=== PATIENT | female | born 1960 | race Caucasian/White ===

== ENCOUNTER → 2017-07-20 | Outpatient (CLI) | payer BC ==
[~2017-07-20] MED LIST: ACTOS 15MG TAB15 MG PO; ACTOS30 MG PO; ASPIR-LOW81 MG PO; ASPIRIN 81M81 MG/TA2 PO; ASPIRIN E.C. 8181 MG PO; BELLADONNA/OPIU1 SU2 RC; BENZAPRIL; BYETTA SC; BYSTOLIC PO; BYSTOLIC10 MG PO; BYSTOLIC20 MG PO; DIABETA 5MG5 MG/TAB PO; FARXIGA10 PO; FLEXERIL 1010 MG/TAB PO; FLEXERIL10 MG PO; GLUCOPHAGE PO; GLUCOPHAGE500 MG/TAB PO; GLUMETZA500 MG PO; HCTZ12.5TAB PO; JANUVIA 100MG100 MG PO; LIPITOR 40MG TA40 MG PO; LIPITOR40 MG PO; LORTAB 5/500 501 TAB PO; LOTENSIN10 MG PO; LOTENSIN40 MG PO; LOVAZA1 GM PO; NAPROSYN500 MG PO; NITROQUICK0.4 MG SL; NITROSTAT0.4 MG/TAB SL; NO HOME MEDICATIONS; NORVASC 10MG10 MG PO; NORVASC 5MG5 MG/TAB PO; ONE DAILY1 TA1 PO; OZEMPIC1 MG/0.75 SQ; PERCOCET 325 MG1 TA2 PO; PHENERGAN 25 TA25 MG PO; PROAIR HFA0.09 MG/AC IH; PROTONIX 40MG T40 MG PO; SEPTRA DS 8001 TAB PO; TENORMIN 5050 MG/TAB PO; TENORMIN100 MG PO; TUSS PO; VICODIN 5/5001 UDTAB PO; VITAMIN C1 TAB PO; XIGDUO5/1000 PO; ZITHROMAX 250M250 MG PO; ZITHROMAX250 MG PO; [UNRECOGNIZED DRUG - OTHER]
== END ==
LOC: COL.CARD 10:40
DX: R00.2 Palpitations (principal)

== ENCOUNTER → 2017-08-27 | Outpatient (CLI) | payer BC ==
[~2017-08-27] MED LIST changes: -ASPIRIN 81M81 MG/TA2 PO; -BYSTOLIC10 MG PO; -HCTZ12.5TAB PO; -OZEMPIC1 MG/0.75 SQ; -XIGDUO5/1000 PO
== END ==
LOC: MC.RAD 13:27
DX: Z12.31 Encounter for screening mammogram for malignant neoplasm of breast (principal)

== ENCOUNTER → 2017-10-26 | Outpatient (CLI) | payer BC | LOC: COL.VAS 09:43 | DX: I70.0 Atherosclerosis of aorta (principal) ==

== ENCOUNTER 2018-03-05 13:38 | Emergency (ER) | payer OTHER, BC ==
[~2018-03-05] VITALS: Wt 96.4 kg
[2018-03-05] MEDS ORDERED: FLEXERIL 1010 MG/TAB PO (14:43)
[2018-03-05 14:55] VITALS: BP 148/73; PULSE 77; TEMP 98.1
== END 2018-03-05 14:55 | disposition home or self-care (01) ==
LOC: COL.ER 13:38
DX: S16.1XXA Strain of muscle, fascia and tendon at neck level, initial encounter (principal); I10 Essential (primary) hypertension; E11.9 Type 2 diabetes mellitus without complications; Z79.84 Long term (current) use of oral hypoglycemic drugs; V43.52XA Car driver injured in collision with other type car in traffic accident, initial encounter

== ENCOUNTER 2019-06-06 13:06 | Outpatient (CLI) | payer BC ==
[~2019-06-06] VITALS: Ht 165.1 cm; Wt 93.2 kg
[2019-06-06] MEDS ORDERED: XIGDUO5/1000 PO (13:47)
[2019-06-06] MEDS ORDERED: HCTZ12.5TAB PO (13:47)
[2019-06-06] MEDS ORDERED: JANUVIA 100MG100 MG PO (13:48)
[2019-06-06] MEDS ORDERED: ASPIRIN 81M81 MG/TA2 PO (13:49)
[2019-06-06] MEDS ORDERED: BYSTOLIC10 MG PO (13:49)
[2019-06-06] MEDS ORDERED: OZEMPIC1 MG/0.75 SQ (13:49)
[2019-06-06 14:15] VITALS: BP 162/52; PULSE 72; TEMP 98.1
== END 2019-06-06 15:20 | disposition home or self-care (01) ==
LOC: EUO 13:06
DX: E87.6 Hypokalemia (principal)
CPT/HCPCS: J7030

== ENCOUNTER 2019-06-11 18:28 | Emergency (ER) | payer BC ==
[~2019-06-11] VITALS: Ht 165.1 cm; Wt 92.3 kg
[~2019-06-11 18:28] MED LIST changes: +ASPIRIN 81M81 MG/TA2 PO; +BYSTOLIC10 MG PO; +HCTZ12.5TAB PO; +OZEMPIC1 MG/0.75 SQ; +XIGDUO5/1000 PO
[2019-06-11 18:37] VITALS: BP 149/82; TEMP 98.3
[2019-06-11 18:59] LABS: BASO # 0.1 (0.0-0.2); BASO % 0.5 % (0.0-2.0); EOS # 0.2 (0.0-0.7); EOS % 1.6 % (0-4.0); GRAN # 9.9 (1.4-6.5); GRAN % 66.7 % (42.2-75.2); HEMATOCRIT 43.2 % (37.0-47.0); HEMOGLOBIN 13.8 g/dl (12.5-16.0); LYMPH # 3.6 (1.2-3.4); LYMPH % 23.9 % (20.0-51.0); MEAN CELL VOLUME 83 fl (80.0-100.0); MEAN CORPUSCULAR HEMOGLOBIN 27 pg (27.0-31.0); MEAN CORPUSCULAR HGB CONC 32 g/dl (33.0-37.0); MEAN PLATELET VOLUME 10.4 fl (7.4-10.4); MONO % 6.8 % (1.7-9.3); PLATELET COUNT 387 K/mm3 (130-400); RED BLOOD COUNT 5.18 M/mm3 (4.10-5.30); REDCELL DISTRIBUTION WIDTH-CV 16.2 % (11.5-14.5)
[2019-06-11 19:04] LABS: INR 0.8 (0.8-3.0); PROTHROMBIN TIME 8.8 SECONDS (9.7-12.8)
[2019-06-11 19:17] LABS: ALANINE AMINOTRANSFERASE 20 U/L (9-52); ALBUMIN 4.4 gm/dL (3.5-5.0); ALKALINE PHOSPHATASE 100 U/L (50-136); ANION GAP 15 mmol/L (7-16); AST,SGOT 28 U/L (15-37); BILIRUBIN,TOTAL 0.3 mg/dL (0.0-1.0); BLOOD UREA NITROGEN 15 mg/dL (7-17); CALCIUM 9.4 mg/dL (8.4-10.2); CARBON DIOXIDE 22 mmol/L (22-30); CHLORIDE 101 mmol/L (98-107); CREATININE, serum 0.81 (0.52-1.25); GLUCOSE 209 mg/dL (74-106); LIPASE 342 U/L (23-300); POTASSIUM 4.1 mmol/L (3.4-5.0); SODIUM 137 mmol/L (137-145); TOTAL PROTEIN 7.3 gm/dL (6.4-8.2)
[2019-06-11 19:30] LABS: TROPONIN-I < 0.012 ng/mL (0.000-0.035)
[2019-06-11 22:29] LABS: COLLECTION METHOD CLEAN CATCH
[2019-06-11 23:04] LABS: PH 5 (5-8); SQUAMOUS EPITHELIAL 0-2 /hpf; URINE APPEARANCE Clear; URINE BACTERIA None Seen /hpf; URINE BILIRUBIN Negative (NEGATIVE); URINE BLOOD Negative (NEGATIVE); URINE COLOR Straw; URINE GLUCOSE 3+ (NEGATIVE); URINE KETONE Negative (NEGATIVE); URINE LEUKOCYTE ESTERASE Negative (NEGATIVE); URINE NITRATE Negative (NEGATIVE); URINE PROTEIN(semi-quant) Negative (NEGATIVE); URINE RBC None Seen /hpf; URINE UROBILINOGEN Negative (NEGATIVE)
[2019-06-11 23:21] VITALS: PULSE 95
== END 2019-06-11 23:21 | disposition home or self-care (01) ==
LOC: COL.ER 18:28
PROVIDERS: Emergency Medicine
DX: R07.89 Other chest pain (principal); I10 Essential (primary) hypertension; E11.9 Type 2 diabetes mellitus without complications; E78.5 Hyperlipidemia, unspecified; E66.9 Obesity, unspecified; E78.00 Pure hypercholesterolemia, unspecified; Z95.9 Presence of cardiac and vascular implant and graft, unspecified; F17.210 Nicotine dependence, cigarettes, uncomplicated; Z90.49 Acquired absence of other specified parts of digestive tract; Z79.84 Long term (current) use of oral hypoglycemic drugs; Z79.82 Long term (current) use of aspirin
CPT/HCPCS: J1200; J2060; J7030

== ENCOUNTER 2020-09-20 06:09 | Day surgery (SDC) | payer BC ==
[~2020-09-20] VITALS: Ht 165.2 cm; Wt 100.1 kg
[2020-09-20] VITALS (10 sets, daily range): BP systolic 123–151; BP diastolic 71–82; PULSE 72–78; TEMP 98.5
[2020-09-20] MEDS ORDERED: VITAMIN B-625 MG PO (06:30)
[2020-09-20] MEDS ORDERED: NITROSTAT0.4 MG/TAB SL (06:31)
[2020-09-20] MEDS ORDERED: B-121000 MCG PO (06:31)
[2020-09-20] MEDS ORDERED: TRESIBA100 UNIT/1 SQ (06:32)
[2020-09-20] MEDS ORDERED: FLEXERIL 1010 MG/TAB PO (06:33)
[2020-09-20] MEDS ORDERED: CHANTIX 1MG1 MG PO (06:33)
[2020-09-20] MEDS ORDERED: GLUCOPHAGE XR500 M1 PO (06:34)
[2020-09-20] MEDS ORDERED: AMBIEN 10MG10 MG PO (06:34)
[2020-09-20 07:04] LABS: HEMOGLOBIN 11.6 g/dl (12.5-16.0); MEAN CELL VOLUME 82 fl (80.0-100.0); MEAN CORPUSCULAR HEMOGLOBIN 27 pg (27.0-31.0); MEAN CORPUSCULAR HGB CONC 33 g/dl (33.0-37.0); MEAN PLATELET VOLUME 10.5 fl (7.4-10.4); PLATELET COUNT 372 K/mm3 (130-400); RED BLOOD COUNT 4.33 M/mm3 (4.10-5.30); REDCELL DISTRIBUTION WIDTH-CV 14.6 % (11.5-14.5)
[2020-09-20 07:11] LABS: HEMATOCRIT 35.7 % (37.0-47.0)
[2020-09-20 07:14] LABS: PROTHROMBIN TIME 10.9 SECONDS (9.7-12.8)
[2020-09-20 07:17] LABS: PARTIAL THROMBOPLASTIN TIME 31.4 SECONDS (26.0-37.0)
[2020-09-20 07:27] LABS: CALCIUM 8.7 mg/dL (8.4-10.2); CREATININE, serum 0.7 (0.52-1.25); POTASSIUM 4.3 mmol/L (3.4-5.0)
[2020-09-20] MEDS ORDERED: PLAVIX 75MG TAB75 MG PO (07:27)
--- NOTE | 2020-09-20 08:30 | NUR ---
Report from Keshav RIDDLE. Transferred by bed from Disease Management Nurse to [facility]. Right groin dressing CD&I, soft to palapation and palpable pedal pulses noted. VSS. Daughter bedside
--- NOTE | 2020-09-20 11:03 | NUR ---
Up to bathroom. Right groin site CD&I and soft to palpation
--- NOTE | 2020-09-20 11:15 | NUR ---
INT discontinued intact. Discharge instructions given. Transferred to private car by [facility]
== END 2020-09-20 11:15 | disposition home or self-care (01) ==
LOC: COL.CAR 06:09
PROVIDERS: Internal Medicine Interventional Cardiology
DX: I25.10 Atherosclerotic heart disease of native coronary artery without angina pectoris (principal); I10 Essential (primary) hypertension; E78.5 Hyperlipidemia, unspecified; Z20.828 Contact with and (suspected) exposure to other viral communicable diseases; Z87.891 Personal history of nicotine dependence; Z79.899 Other long term (current) drug therapy; Z79.4 Long term (current) use of insulin; Z79.82 Long term (current) use of aspirin
CPT/HCPCS: C1760; C1894; J1644; J2250; J3010; Q9967

== ENCOUNTER → 2020-11-01 | Outpatient (CLI) | payer BC ==
[~2020-11-01] MED LIST changes: +AMBIEN 10MG10 MG PO; +B-121000 MCG PO; +CHANTIX 1MG1 MG PO; +GLUCOPHAGE XR500 M1 PO; +PLAVIX 75MG TAB75 MG PO; +TRESIBA100 UNIT/1 SQ; +VITAMIN B-625 MG PO
== END ==
LOC: MC.RAD 13:05
DX: Z12.31 Encounter for screening mammogram for malignant neoplasm of breast (principal)

== ENCOUNTER → 2020-11-19 | Outpatient (CLI) | payer OTHER | LOC: COL.RAD 11:43 | DX: E04.2 Nontoxic multinodular goiter (principal) ==

== ENCOUNTER → 2021-11-25 | Outpatient (CLI) | payer BC | LOC: COL.RAD 12:40 | DX: E04.2 Nontoxic multinodular goiter (principal) ==

== ENCOUNTER → 2021-12-18 | Outpatient (CLI) | payer BC | LOC: MC.RAD 15:15 | DX: Z12.31 Encounter for screening mammogram for malignant neoplasm of breast (principal) ==

== ENCOUNTER 2022-06-08 16:00 | Outpatient (RCR) | payer BC ==
[2022-05-29 16:20] VITALS: BP 121/77; PULSE 80; TEMP 98.6
[2022-06-01 16:06] VITALS: BP 130/77; PULSE 88; TEMP 98.8
[2022-06-03 15:57] VITALS: BP 151/84; PULSE 88; TEMP 99
[2022-06-05 15:58] VITALS: BP 133/68; PULSE 69; TEMP 98.6
[~2022-06-08] VITALS: Ht 165.1 cm; Wt 109.0 kg
[~2022-06-08 16:00] MED LIST changes: +LYRICA 50MG CAP50 MG PO; +NOVOLOG FLEX100 U/ML SQ; +OZEMPIC1 MG/0.71 SQ; -OZEMPIC1 MG/0.75 SQ; +SYNTHROID 0.10.15 MG PO; +TRESIBA FL200 UNIT/1 SQ; -TRESIBA100 UNIT/1 SQ
[2022-06-08 16:08] VITALS: BP 120/73; PULSE 76; TEMP 98.6
== END 2022-06-08 17:30 | disposition home or self-care (01) ==
LOC: EUO 16:00
DX: D50.9 Iron deficiency anemia, unspecified (principal)
CPT/HCPCS: J1756

== ENCOUNTER 2022-09-16 22:31 | Emergency (ER) | payer BC ==
[~2022-09-16] VITALS: Ht 165.1 cm; Wt 102.3 kg
[2022-09-16 22:44] VITALS: TEMP 98.7
[2022-09-16] MEDS ORDERED: NORCO 325 MG-51 TAB PO (23:46)
[2022-09-16] MEDS ORDERED: CRUTCHES MC (23:56)
[2022-09-17 00:02] VITALS: BP 148/87; PULSE 80
== END 2022-09-17 00:02 | disposition home or self-care (01) ==
LOC: COL.ER 22:31
DX: S93.602A Unspecified sprain of left foot, initial encounter (principal); Z87.891 Personal history of nicotine dependence; Z28.310 Unvaccinated for COVID-19; W10.9XXA Fall (on) (from) unspecified stairs and steps, initial encounter; X50.1XXA Overexertion from prolonged static or awkward postures, initial encounter; Y92.59 Other trade areas as the place of occurrence of the external cause; Y99.0 Civilian activity done for income or pay